=== PATIENT | male | born 1955 | race Two or more races ===

== ENCOUNTER 2022-03-13 17:14 | Inpatient (IN) | payer MEDICARE, OTHER ==
[~2022-03-13] VITALS: Ht 180.3 cm; Wt 75.7 kg
--- NOTE | 2022-03-13 17:25 | NUR ---
To ER bed 10, [id number] home, noted pale, cool and diaphoretic and c/o chest pain, bradycardic, and hypertensive sloop captain. denies chest pain upon arrival, aaox3, breathing even and non labored, connected to monitor
--- NOTE | 2022-03-13 18:16 | NUR ---
COVID SWAB DONE AND SENT TO LAB
--- NOTE | 2022-03-13 18:21 | NUR ---
MOVE SHEET SUBMITTED.
--- NOTE | 2022-03-13 18:39 | NUR ---
THOMAS [phone]
--- NOTE | 2022-03-13 18:41 | NUR ---
DR ARIAS TALKING TO THOMAS, PATIENTS DAUGHTER
[2022-03-13 18:57] LABS: CALCIUM, SERUM 8.8 mg/dL (8.5-10.1); CARBON DIOXIDE 32 mmol/L (21-32); CHLORIDE 106 mmol/L (98-107); CREATININE 1.7 mg/dL (0.6-1.3); GLUCOSE 80 mg/dL (74-106); SODIUM SERUM 141 mmol/L (136-145); UREA NITROGEN, BLOOD 18 mg/dL (7-18)
--- NOTE | 2022-03-13 19:10 | NUR ---
PATIENT AWAKE, AAOX3, BREATHING EVEN AND NON LABORED, DENIES PAIN
--- NOTE | 2022-03-13 19:31 | NUR ---
PT IS ALERT AND ORIENTED, RESTING COMFORTABLY IN BED. CONNECTED TO MONITOR. DENIES ANY PAIN AT THIS TIME. WILL CONTINUE TO MONITOR
--- NOTE | 2022-03-13 19:31 | NUR ---
RECEIVED REPORT FROM SAMM MO FOR EJ
[2022-03-13 19:46] LABS: BASOPHILS % (AUTO) 0.4 % (0.0-2.0); EOSINOPHILS % (AUTO) 0.9 % (0.0-6.0); HEMATOCRIT 45 % (39-51); HEMOGLOBIN 14.5 g/dL (13.5-17.5); LYMPHOCYTES # (AUTO) 1.3 K/uL (0.8-4.8); LYMPHOCYTES % (AUTO) 10.3 % (20.0-44.0); MEAN CORPUSCULAR HGB CONC 32 g/dl (31.0-36.0); MEAN CORPUSCULAR VOLUME 85 fL (80-96); MONOCYTES # (AUTO) 0.6 K/uL (0.1-1.30); MONOCYTES % (AUTO) 4.6 % (2.0-12.0); NEUTROPHILS # (AUTO) 10.2 K/uL (1.8-8.9); NEUTROPHILS % (AUTO) 83.8 % (43.0-81.0); PLATELET COUNT (AUTO) 217 K/uL (150-450); RED BLOOD CELL COUNT(AUTO) 5.24 MIL/uL (4.5-6.0); WHITE BLOOD COUNT (AUTO) 12.2 K/uL (4.3-11.0)
--- NOTE | 2022-03-13 21:30 | NUR ---
RECIEVED BED 312-2
--- NOTE | 2022-03-13 21:51 | NUR ---
REPORT GIVEN TO REENA MO FOR EJ
--- NOTE | 2022-03-13 22:00 | NUR ---
LABORER SHELLFISH PROCESSING NOTE RECEIVED REPORT FROM YOMI BLISS NURSE. PT COMING SOON TO ROOM 312.
--- NOTE | 2022-03-13 22:20 | NUR ---
SIEVE REPAIRERASSISTANT PORTFOLIO MANAGER NOTE RECEIVED PATIENT FROM ER. PT A/O X 4, ABLE TO MAKE NEEDS KNOWN. PT IS BEING ADMITTED FOR CHEST PAIN, AND BRADYCARDIA IN 312-2. BUT PT DENIES ANY CHEST PAIN OR DISCOMFORT AT THIS TIME. PT ABLE TO AMBULATE. SKIN ASSESSMENT DONE, PT SKIN IS INTACT. PT HAS IV ACCESS TO RIGHT AC 18 G, IV INTACT, AND FLUSHING WELL. PT ON TELE MONITOR . PT'S BP IS HIGH: 179/79, PT HAS LOW HR: 53. WILL CONTINUE TO MONITOR PT.
[2022-03-13 22:30] VITALS: BP 175/79
[2022-03-13] MEDS ORDERED: NITROGLYCERIN 0.4 MG/TAB BOTTLE SL PRN (22:30)
[2022-03-13] MEDS ORDERED: Z GUARD REMEDY 4 OZ OINT TP PRN (22:30)
[2022-03-13] MEDS ORDERED: MORPHINE SULFATE INJ 2 MG/ML DISP.SYRIN IV PRN (22:30)
[2022-03-13] MEDS ORDERED: MAG HYDROX/AL HYDROX/SIMETH 30 ML UDC PO PRN (22:30)
[2022-03-13] MEDS ORDERED: MAGNESIUM HYDROXIDE 30 ML UDC PO PRN (22:30)
[2022-03-13] MEDS ORDERED: ZOLPIDEM TARTRATE 5 MG TABLET PO PRN (22:30)
[2022-03-14] VITALS: BP 140/99
[2022-03-14 02:54] LABS: THYROID STIMULATING HORMONE 0.868 uIU/mL (0.358-3.74)
[2022-03-14 04:00] VITALS: BP 171/95
--- NOTE | 2022-03-14 07:05 | NUR ---
EARTH MOVER CLOSING NOTE PATIENT LYING IN BED ASLEEP, EASILY AROUSED. A/O X4. NO SOB NOTED. ON RA. DENIES PAIN AT THIS TIME. NOT IN ACUTE DISTRESS. ON TELE MONITOR READING SINUS BRADYCARDIA. HAS LEFT ANTECUBITAL IV ACCESS #18G. IV INTACT, PATENT AND FLUSHING WELL. ALL DUE MEDS GIVEN AND NEEDS ATTENDED. SAFETY MEASURES MAINTAINED. WILL ENDORSE PT' CARE TO ONCOMING SHIFT NURSE.
[2022-03-14 07:40] LABS: BASOPHILS # (AUTO) 0.1 K/uL (0.0-0.2); BASOPHILS % (AUTO) 0.7 % (0.0-2.0); EOSINOPHILS % (AUTO) 1.9 % (0.0-6.0); HEMATOCRIT 46 % (39-51); HEMOGLOBIN 14.9 g/dL (13.5-17.5); LYMPHOCYTES # (AUTO) 1.9 K/uL (0.8-4.8); LYMPHOCYTES % (AUTO) 23.8 % (20.0-44.0); MEAN CORPUSCULAR HGB CONC 32 g/dl (31.0-36.0); MEAN CORPUSCULAR VOLUME 85 fL (80-96); MONOCYTES # (AUTO) 0.5 K/uL (0.1-1.30); MONOCYTES % (AUTO) 5.7 % (2.0-12.0); NEUTROPHILS # (AUTO) 5.5 K/uL (1.8-8.9); NEUTROPHILS % (AUTO) 67.9 % (43.0-81.0); PLATELET COUNT (AUTO) 215 K/uL (150-450); WHITE BLOOD COUNT (AUTO) 8.1 K/uL (4.3-11.0)
[2022-03-14 08:00] VITALS: BP_SYST 156
[2022-03-14 08:27] LABS: CALCIUM, SERUM 8.7 mg/dL (8.5-10.1); CREATININE 1.4 mg/dL (0.6-1.3); MAGNESIUM 1.8 mg/dL (1.8-2.4); POTASSIUM 3.8 mmol/L (3.5-5.1)
[2022-03-14] MEDS: ASPIRIN 81 MG TAB.CHEW PO SCH (08:35)
[2022-03-14] MEDS: PANTOPRAZOLE 40 MG VIAL IV SCH (08:35)
[2022-03-14] MEDS: ENOXAPARIN SODIUM 40 MG/0.4 ML DISP.SYRIN SQ SCH (08:38)
[2022-03-14] MEDS ORDERED: HYDR-4076 PO (09:05)
[2022-03-14] MEDS ORDERED: FINA5TAB11 PO (09:05)
[2022-03-14] MEDS ORDERED: METO25TA20 PO (09:05)
[2022-03-14] MEDS ORDERED: TAMS-12 PO (09:05)
[2022-03-14] MEDS ORDERED: AMLO-212 PO (09:05)
[2022-03-14] MEDS ORDERED: PANT40TA49 PO (09:05)
[2022-03-14] MEDS ORDERED: ASPI-1420 PO (09:05)
[2022-03-14 12:00] VITALS: BP 167/100
[2022-03-14] MEDS ORDERED: CARVEDILOL 6.25 MG TABLET PO SCH (14:00)
[2022-03-14] MEDS ORDERED: hydrALAZINE HCL 50 MG TABLET PO SCH (14:00)
[2022-03-14 16:02] VITALS: BP 153/86
--- NOTE | 2022-03-14 18:56 | NUR ---
PAVING RAMMER CLOSING NOTE PATIENT RECEIVED IN BED AND AWAKE. A/O X4 AND ABLE TO VERBALIZE NEEDS WELL AMBULATE TO/FROM BATHROOM NEEDED. IV ACCESS TO RAC REMAINS INTACT AND PATENT. PATIENT TOLERATED ALL MEDICATIONS WELL. REMAINS SINUS NENITA WITH CURRENT HR OF 48. PATIENT REMAINS STABLE WITH NO OTHER ABNORMAL SYMPTOMS. BLOOD PRESSURE STILL ELEVATED ON SHIFT WITH MOST RECENT @ 153/86. ALL SAFETY MEASURES IN TACT WITH BED LOW AND LOCKED. SIDE RIAL UP X2, CALL LIGHT WITHIN REACH. WILL CONTINUE TO MONITOR.
--- NOTE | 2022-03-14 19:36 | NUR ---
INDUSTRIAL PAINTER OPENING NOTES: RECEIVED PATIENT AWAKE, BED IN LOW POSITION, CALL LIGHTS WITHIN REACH, NO COMPLAIN OF PAIN AND DISCOMFORT AT HIS TIME, ON O2 INHALATION AT 3LPM SATURATING WELL, PATIENT IS A/OX4 ABLE TO MAKE NEEDS KNOWN, IV LINE AT RAC#18SL, PATIENT KEPT CLEAN AND DRY ALL NEEDS MET WILL CONTINUE TO MONITOR.
[2022-03-14 20:00] VITALS: BP 167/88
[2022-03-14] MEDS: ACETAMINOPHEN 325 MG TABLET PO PRN (20:25)
--- NOTE | 2022-03-14 22:41 | NUR ---
RN NOTES: 2100 ANTI HYPERTENSIVE MEDICATIONS WAS OBSERVED GIVEN ONLY FOR PAST 4HRS NOTIFY PHARMACY IF NEEDS TO BE READJUST PATIENT HAS HISTORY OF BRADYCARDIA MEDICATION WAS ADJUSTED APRESOLINE 50MG Q8H PO WAS ADJUSTED TO 1200 LAST GIVEN 1634, AND CARVEDILOL 6.25MG PO Q12H TO 0400 LAST GIVEN 1634 NOTED AND CARRY OUT.
[2022-03-14] MEDS: hydrALAZINE HCL 50 MG TABLET PO SCH (23:42)
[2022-03-15] VITALS: BP 167/83
[2022-03-15 04:00] VITALS: BP 154/86
[2022-03-15] MEDS: CARVEDILOL 6.25 MG TABLET PO SCH ×2 (04:00→10:33)
--- NOTE | 2022-03-15 04:23 | NUR ---
RN NOTES: 0400 MEDICATION FOR HYPERTENSION COREG 6.25MG PO Q12H NOT GIVEN PATIENT HR IS 48 BP-154/86
[2022-03-15 06:18] LABS: BASOPHILS % (AUTO) 0.5 % (0.0-2.0); EOSINOPHILS % (AUTO) 1.8 % (0.0-6.0); HEMATOCRIT 45 % (39-51); HEMOGLOBIN 14.7 g/dL (13.5-17.5); LYMPHOCYTES # (AUTO) 2.1 K/uL (0.8-4.8); LYMPHOCYTES % (AUTO) 26.6 % (20.0-44.0); MEAN CORPUSCULAR HGB CONC 32 g/dl (31.0-36.0); MEAN CORPUSCULAR VOLUME 86 fL (80-96); MONOCYTES # (AUTO) 0.4 K/uL (0.1-1.30); MONOCYTES % (AUTO) 5.6 % (2.0-12.0); NEUTROPHILS # (AUTO) 5.1 K/uL (1.8-8.9); NEUTROPHILS % (AUTO) 65.5 % (43.0-81.0); PLATELET COUNT (AUTO) 220 K/uL (150-450); RED BLOOD CELL COUNT(AUTO) 5.31 MIL/uL (4.5-6.0); WHITE BLOOD COUNT (AUTO) 7.8 K/uL (4.3-11.0)
--- NOTE | 2022-03-15 06:34 | NUR ---
VARNISHING MACHINE OPERATOR CLOSING NOTES: PATIENT SLEEP IN BED COMFORTABLY, AROUSABLE TO VERBAL STIMULI, BED IN LOW POSITION CALL LIGHTS WITHIN REACH, NO COMPLAIN OF PAIN AND DISCOMFORT AT THIS TIME, ON ROOM AIR SATURATING WELL,ON TELE MONITOR- SB-45, PATIENT IS A/OX4 ABLE TO MAKE NEEDS KNOWN, AMBULATORY, ON NPO FOR CT ANGIO IN AM, KEPT CLEAN AND DRY ALL NEEDS MET ENDORSE TO INCOMING SHIFT.
[2022-03-15 06:47] LABS: CALCIUM, SERUM 9.1 mg/dL (8.5-10.1); CREATININE 1.6 mg/dL (0.6-1.3); POTASSIUM 3.8 mmol/L (3.5-5.1)
--- NOTE | 2022-03-15 07:40 | NUR ---
HEAD SUGAR REPROCESS OPERATOR OPENING NOTE PATIENT RECEIVED IN BED AND AWAKE. A/O X4 AND ABLE TO VERBALIZE NEEDS AND AMBULATE TO/FROM BATHROOM AND THROUGHOUT BEDROOM. REMAINS NPO AT THIS TIME FOR SCHEDULED CTA. IV ACCESS TO RAC INTACT AND PATENT WITH NO S/SX OF TRAUMA OR BLEEDING TO SITE. SAFETY MEASURES IN PLACE WITH BED IN LOWEST POSITION AND LOCKED. SIDERAIL UP AND CALL LIGHT WITHIN REACH. WILL CONTINUE TO MONITOR THROUGHOUT SHIFT.
[2022-03-15 08:00] VITALS: BP 186/86
[2022-03-15] MEDS: ENOXAPARIN SODIUM 40 MG/0.4 ML DISP.SYRIN SQ SCH (09:00)
[2022-03-15] MEDS ORDERED: IV NS 0.9% 1,000 ML IV ONE (09:30)
[2022-03-15] MEDS: hydrALAZINE HCL 50 MG TABLET PO SCH ×2 (10:33→16:52)
[2022-03-15] MEDS: PANTOPRAZOLE 40 MG VIAL IV SCH (10:33)
[2022-03-15] MEDS: ASPIRIN 81 MG TAB.CHEW PO SCH (10:34)
[2022-03-15 16:00] VITALS: BP 155/94
--- NOTE | 2022-03-15 19:03 | NUR ---
AUTOMOTIVE PRODUCT SPECIALIST CLOSING NOTE PATIENT REMAINED A/O X4 AND ABLE TO VERBALIZE NEEDS WITH NO EJ. SCHEDULED CTA RESCHEDULED FOR 03/16. DIET UPGRADED BACK TO CARDIAC DIET UNTIL MIDNIGHT. PATIENT MADE AWARE OF CHANGE. IV ACCESS TO RAC REMAINED INTACT AND PATENT WITH NS RUNNING @ 100ML/HR. TOLERATING WELL. NO S/SX OF TRAUMA OR BLEEDING TO SITE. CONTINUES TO BE SINUS NENITA. SAFETY MEASURES REMAIN IN PLACE WITH BED IN LOWEST POSITION AND LOCKED. SIDERAIL UP AND CALL LIGHT WITHIN REACH. WILL CONTINUE TO MONITOR THROUGHOUT SHIFT.
--- NOTE | 2022-03-15 19:20 | NUR ---
LANDMEN OPENING NOTE RECEIVED PATIENT IN BED AND AWAKE. A/O X4, ABLE TO VERBALIZE NEEDS, AND ABLE TO AMBULATE TO BATHROOM. IV ACCESS TO RIGHT AC INTACT AND PATENT WITH NO S/SX OF TRAUMA OR BLEEDING TO SITE. SAFETY MEASURES IN PLACE: BED IN LOWEST POSITION AND LOCKED. SIDE RAILS UP X 2 AND CALL LIGHT WITHIN REACH. WILL CONTINUE TO MONITOR PT THROUGHOUT SHIFT.
[2022-03-15 20:00] VITALS: BP 183/100
[2022-03-15] MEDS: hydrALAZINE HCL IV 20 MG VIAL IV PRN (20:30)
--- NOTE | 2022-03-15 20:30 | NUR ---
MANAGEMENT SME NOTE PT'S BP IS HIGH: 183/100. HR: 123. BP MED ADMINISTERED.
--- NOTE | 2022-03-15 22:00 | NUR ---
SUPERVISOR PAYROLL NOTE PT WAS GIVEN BP MED. PT'S BP NOW: 176/85, HR: 60. WILL CONTINUE TO MONITOR PT.
[2022-03-16] VITALS (7 sets, daily range): BP systolic 117–178; BP diastolic 78–102
[2022-03-16] MEDS: hydrALAZINE HCL 50 MG TABLET PO SCH ×3 (00:21→16:09)
[2022-03-16] MEDS: ACETAMINOPHEN 325 MG TABLET PO PRN ×2 (00:26→16:14)
[2022-03-16] MEDS: CARVEDILOL 6.25 MG TABLET PO SCH ×2 (04:00→16:08)
[2022-03-16] MEDS: hydrALAZINE HCL IV 20 MG VIAL IV PRN (04:41)
--- NOTE | 2022-03-16 04:45 | NUR ---
MARKETING PRODUCER NOTE PT HAS HIGH BP, BP: 177/97, WITH HR: 53-62. HYDRALAZINE ADMINISTERED TO PT. COREG NOT GIVEN TO PT D/T LOW HR, AND PT NPO SINCE MIDNIGHT.
[2022-03-16] MEDS: ONDANSETRON HCL/PF 4 MG/2 ML VIAL IVP PRN ×2 (05:02→11:21)
--- NOTE | 2022-03-16 05:19 | NUR ---
CHAPERONE NOTE PT STATES THAT HE FEELS DIZZY, AND NAUSEOUS. PT HAD AN EPISODE OF EMESIS. ZOFRAN GIVEN TO PT. MD NOTIFIED. MD AT BED SIDE. NEW ORDER GIVEN FOR TROPONIN, MAG,AND PHOS. ORDER CARRIED OUT.
[2022-03-16 05:52] LABS: BASOPHILS # (AUTO) 0.1 K/uL (0.0-0.2); BASOPHILS % (AUTO) 0.8 % (0.0-2.0); EOSINOPHILS % (AUTO) 1.5 % (0.0-6.0); HEMATOCRIT 49 % (39-51); HEMOGLOBIN 15.9 g/dL (13.5-17.5); LYMPHOCYTES # (AUTO) 2.5 K/uL (0.8-4.8); LYMPHOCYTES % (AUTO) 27.4 % (20.0-44.0); MEAN CORPUSCULAR HGB CONC 32 g/dl (31.0-36.0); MEAN CORPUSCULAR VOLUME 86 fL (80-96); MONOCYTES # (AUTO) 0.6 K/uL (0.1-1.30); MONOCYTES % (AUTO) 6.5 % (2.0-12.0); NEUTROPHILS # (AUTO) 5.9 K/uL (1.8-8.9); NEUTROPHILS % (AUTO) 63.8 % (43.0-81.0); PLATELET COUNT (AUTO) 221 K/uL (150-450); RED BLOOD CELL COUNT(AUTO) 5.73 MIL/uL (4.5-6.0); WHITE BLOOD COUNT (AUTO) 9.2 K/uL (4.3-11.0)
--- NOTE | 2022-03-16 05:53 | NUR ---
RN NOTES HYDRALAZINE 10MG IV WAS GIVEN BY CHEPE HIGGINS FOR BP 177/97.. AFTER AN HOUR PATIENT COMPLAINED OF FEELING DIZZY, PUT NASAL CANNULA AND GAVE O2 @ 2L SAT 98 %. FARRAH POLK-GUSSET MAKER MADE AWARE.- NO ORDER WAS GIVEN ...ICU CHARGE NURSE CAME UP AND ASSESSED THE PATIENT, ORDER SOME LAB WORKS , AFTER 30MINS, PT STATED HE'S FEELING MCH BETTER,,WILL CONTINUE TO MONITOR
[2022-03-16] MEDS: IV NS 0.9% 1,000 ML IV PRN ×2 (06:13→18:49)
[2022-03-16 07:17] LABS: CALCIUM, SERUM 9.4 mg/dL (8.5-10.1); CREATININE 1.4 mg/dL (0.6-1.3); MAGNESIUM 1.9 mg/dL (1.8-2.4); PHOSPHORUS 3.4 mg/dL (2.5-4.9); POTASSIUM 3.8 mmol/L (3.5-5.1)
--- NOTE | 2022-03-16 07:30 | NUR ---
REHABILITATION WORKER CLOSING NOTE LEFT PATIENT IN BED AWAKE. BED IN LOW POSITION CALL LIGHTS WITHIN REACH, NO COMPLAIN OF PAIN AT THIS TIME, ON ROOM AIR SATURATING WELL,ON TELE MONITOR- SB, PATIENT IS A/OX4 ABLE TO MAKE NEEDS KNOWN, AMBULATORY, PT NPO FOR CT ANGIO IN AM. PT KEPT CLEAN, AND DRY. ALL NEEDS MET. ENDORSED TO INCOMING SHIFT NURSE FOR EJ.
--- NOTE | 2022-03-16 07:56 | NUR ---
RN OPENING NOTE PATIENT AWAKE IN BED RESTING. A/O X4. NO S/S OF PAIN NOTED AT THIS TIME. ON ROOM AIR, NO DISTRESS OR SHORTNESS OF BREATH NOTED. IV ACCESS RAC #18G INTACT, PATENT AND FLUSHING WELL. PATIENT WITH EXTERNAL EMAIL MARKETING INTERN WITH CURRENT READING OF SB AND HR OF 50'S. FALL AND SAFETY MEASURES IN PLACE, BED ALARM ON, BED IN LOW AND LOCK POSITION, CALL LIGHT AND TABLE WITHIN EASY REACH, SIDE RAILS UP X2. WILL CONTINUE TO MONITOR.
[2022-03-16] MEDS: PANTOPRAZOLE 40 MG TABLET.DR PO SCH (08:22)
[2022-03-16] MEDS: ASPIRIN 81 MG TAB.CHEW PO SCH (08:24)
[2022-03-16] MEDS: ENOXAPARIN SODIUM 40 MG/0.4 ML DISP.SYRIN SQ SCH (09:00)
[2022-03-16] MEDS ORDERED: HYDROCODONE/APAP 10/325MG TABLET PO PRN (10:30)
--- NOTE | 2022-03-16 10:40 | NUR ---
RN NOTE PATIENT COMPLAINED OF HEADACHE, DOCTOR WAS INFORMED, DOCTOR ORDERED NORCO-10 PO Q6HRS PRN, ORDER WAS PLACED, MEDICATION GIVEN, WILL CONTINUE TO MONITOR.
[2022-03-16] MEDS ORDERED: IOHEXOL-350 100 ML VIAL IV ONE (11:26)
[2022-03-16] MEDS ORDERED: IV NS 0.9% 250 ML IV ONE (11:26)
[2022-03-16] MEDS ORDERED: CT SWABBABLE VALVE TRANS SET 1 EA INFUS.SET MC ONE (11:26)
[2022-03-16] MEDS ORDERED: NITROGLYCERIN 0.4 MG/TAB BOTTLE ONE (11:26)
[2022-03-16] MEDS ORDERED: METOPROLOL TARTRATE INJ 5 MG/5 ML AMPUL ONE (11:26)
[2022-03-16] MEDS ORDERED: NITROGLYCERIN 0.4 MG/TAB BOTTLE SL PRN (11:30)
[2022-03-16] MEDS ORDERED: METOPROLOL TARTRATE INJ 5 MG/5 ML AMPUL IVP PRN (11:30)
--- NOTE | 2022-03-16 11:46 | NUR ---
AGRICULTURAL ENGINEERING TECHNICIAN PT BROUGHT INTO CT1 FOR CTCA. PT PLACED ON TABLE, PT VERY NAUSEATED, STARTED VOMITING. CALLED PHARMACY AND ADMINISTERED PRN ZOFRAN PER EMAR ORDER. PT NOTED TO BE DIAPHORETIC. VITALS CHECKED. WILL CONTINUE TO MONITOR AND ASSESS. PT WISHES TO CONTINUE WITH EXAM. EDUCATED HIM ON THE PROCESS. WILL CONTINUE TO MONITOR. CTCA COMPLETED.
--- NOTE | 2022-03-16 12:00 | NUR ---
RN NOTE PATIENT HAD A CTCA DONE TODAY. PATIENT HAS BEING HAVING HIGH BLOOD PRESSURES, VOMITING X2, NAUSEA AND DIAPHORETIC. ZOFRAN WAS GIVEN, BLOOD PRESSURE MEDICATION WAS GIVEN, BP WENT DOWN FROM 180/100 P:70 TO 147/84 p: 68. OXYGEN WAS PROVIDED SAT. 99%. PATIENT IS IN ROOM RESTING COMFORTABLY. DOCTOR WAS INFORMED, CHARGE NURSE AWARE. WILL CONTINUE TO MONITOR.
[2022-03-16 16:13] LABS: ALBUMIN 3.9 g/dL (3.4-5.0); BILIRUBIN,DIRECT 0.2 mg/dL (0.0-0.2); BILIRUBIN,TOTAL 0.7 mg/dL (0.2-1.0); TOTAL PROTEIN, SERUM 7.4 g/dL (6.4-8.2)
--- NOTE | 2022-03-16 16:17 | NUR ---
RN NOTE PATIENT COMPLAINED OF HEADACHE TYLENOL WAS GIVEN, WILL CONTINUE TO MONITOR.
--- NOTE | 2022-03-16 19:26 | NUR ---
RN CLOSING NOTE PATIENT AWAKE IN BED RESTING. A/O X4. NO S/S OF PAIN NOTED AT THIS TIME, PAIN MEDICATION GIVEN DURING THE SHIF. ON ROOM AIR, NO DISTRESS OR SHORTNESS OF BREATH NOTED. IV ACCESS RAC #18G INTACT, PATENT AND FLUSHING WELL. PATIENT WITH EXTERNAL FIRE FIGHTING EQUIPMENT SPECIALIST WITH CURRENT READING OF SB- SR AND HR OF 50'S- 60'S, NO CARDIAC DISTRESS NOTED. SCHEDULE MEDICATIONS ADMINISTERED. HIGH BLOOD PRESSURE DURING THE SHIFT, PLEASE MONITOR BP. FALL AND SAFETY MEASURES IN PLACE, BED ALARM ON, BED IN LOW AND LOCK POSITION, CALL LIGHT AND TABLE WITHIN EASY REACH, SIDE RAILS UP X2. WILL ENDORSE TO CONSERVATION OF RESOURCES COMMISSIONER.
--- NOTE | 2022-03-16 19:53 | NUR ---
RN OPENING NOTES RECEIVED PT IN BED, SITTING UPRIGHT, WITH DAUGHTERS AT BEDSIDE. AOx4, ABLE TO MAKE NEEDS KNOWN. ON RA AND TOLERATING WELL. NO SOB NOTED. NO S/SX OF RESPIRATORY DISTRESS NOTED. IV ACCESS IN RAC #20G RUNNING NS @ 100 ML/HR. SAFETY PRECAUTIONS IN PLACE: BED IN LOWEST, LOCKED POSITION, SIDERAILS UPx2, AND BRAKES ON. TABLE AND CALL LIGHT WITHIN REACH. ALL NEEDS MET AT THIS TIME.
[2022-03-17] VITALS: BP 152/74
[2022-03-17] MEDS: hydrALAZINE HCL 50 MG TABLET PO SCH ×4 (00:58→23:26)
[2022-03-17 04:00] VITALS: BP 149/75
[2022-03-17] MEDS: CARVEDILOL 6.25 MG TABLET PO SCH ×2 (04:00→16:00)
[2022-03-17 06:07] LABS: CALCIUM, SERUM 8.8 mg/dL (8.5-10.1); CREATININE 1.6 mg/dL (0.6-1.3)
--- NOTE | 2022-03-17 06:45 | NUR ---
RN CLOSING NOTES PT IN BED, ASLEEP, AWAKENS TO VERBAL STIMULI. AOx4, ABLE TO MAKE NEEDS KNOWN. ON RA AND TOLERATING WELL. NO SOB NOTED. NO S/SX OF RESPIRATORY DISTRESS NOTED. IV ACCESS IN DOUGLAS #18G RUNNING NS @ 100 ML/HR. ALL ORDERS CARRIED OUT. ALL NEED MET. PT KEPT CLEAN AND DRY. SAFETY PRECAUTIONS IN PLACE: BED IN LOWEST, LOCKED POSITION, SIDERAILS UPx2, AND BRAKES ON. TABLE AND CALL LIGHT WITHIN REACH. WILL ENDORSE TO ONCOMING SHIFT FOR EJ.
--- NOTE | 2022-03-17 08:16 | NUR ---
RN OPENING NOTE PATIENT AWAKE IN BED RESTING. A/O X4. NO S/S OF PAIN NOTED AT THIS TIME. ON ROOM AIR, NO DISTRESS OR SHORTNESS OF BREATH NOTED. IV ACCESS DOUGLAS #18G INTACT, PATENT AND FLUSHING WELL. PATIENT WITH EXTERNAL ASSISTANT ACCOUNTING MANAGER WITH CURRENT READING OF SB AND HR OF 50'S. FALL AND SAFETY MEASURES IN PLACE, BED ALARM ON, BED IN LOW AND LOCK POSITION, CALL LIGHT AND TABLE WITHIN EASY REACH, SIDE RAILS UP X2. WILL CONTINUE TO MONITOR.
--- NOTE | 2022-03-17 08:30 | NUR ---
RN NOTE CARE TAKEN OVER BY CHEPE WARD.
[2022-03-17 08:46] VITALS: BP 141/77
[2022-03-17] MEDS: ASPIRIN 81 MG TAB.CHEW PO SCH (09:15)
[2022-03-17] MEDS: PANTOPRAZOLE 40 MG TABLET.DR PO SCH (09:15)
[2022-03-17] MEDS: ENOXAPARIN SODIUM 40 MG/0.4 ML DISP.SYRIN SQ SCH (09:18)
[2022-03-17 16:00] VITALS: BP 143/67
--- NOTE | 2022-03-17 18:18 | NUR ---
RN NOTE Spoke with Dr. Sanz, patient cleared for procedure from nephro perspective.
[2022-03-17] MEDS: IV NS 0.9% 1,000 ML IV PRN (18:46)
--- NOTE | 2022-03-17 19:08 | NUR ---
NATURAL GAS ENGINEER CLOSING NOTES PATIENT AWAKE IN BED. A/Ox4. ON ROOM AIR, NO S/S OF RESPIRATORY DISTRESS. ON TELE MONITORING SHOWING SINUS RHYTHM/NENITA HR 60. IV ACCESS DOUGLAS #18 WITH NS RUNNING @100 ML/HR. INTACT AND PATENT. AMBULATORY, HAS BATHROOM PRIVILEGE. SKIN INTACT. ALL PRESCRIBED MEDICATION ADMINISTERED. SAFETY MEASURES MAINTAINED: BED LOCKED AND IN LOWEST POSITION, HOB ELEVATED, SIDE RAILS UP x2, CALL LIGHT WITHIN REACH. WILL ENDORSE TO NEXT SHIFT ANY EJ.
--- NOTE | 2022-03-17 19:30 | NUR ---
JEWELRY DESIGNER NOTES RECEIVED LAYING COMFORTABLY ON BED,A/O X4,BREATHING REGULAR,NOT IN ANY FORM OF DISTRESS,[id number] CHEST PAIN,INSTRUCTED NPO POST MIDNIGHT FOR LEFT HEART CATH IN THE MORNING BY DR RODRIGUEZ.CONSENT ON CHART.PRESENT IVF NS AT 100ML/HR ERATE INFUSING WELL ON RIGHT UPPER ARM SALINE LOCK VIA IV PUMP.CALL LIGHT IN REACH,NEEDS ANTICIPATED.
[2022-03-17 20:00] VITALS: BP 159/68
--- NOTE | 2022-03-17 21:55 | NUR ---
CARDIOVASCULAR TECHNOLOGIST NOTES SB-57 ON TELE MONITOR,NO CHEST PAIN
--- NOTE | 2022-03-17 23:32 | NUR ---
AUTO RESEARCH ENGINEER NOTES BP 171/79,PULSE-49,DUE HYDRALAZINE 50MG PO GIVEN WITH SIPS OF WATER.
[2022-03-18] VITALS (8 sets, daily range): BP systolic 131–179; BP diastolic 66–95
[2022-03-18] MEDS: CARVEDILOL 6.25 MG TABLET PO SCH ×2 (04:00→16:00)
--- NOTE | 2022-03-18 04:00 | NUR ---
ARMATURE WINDER REPAIR HELPER NOTES PULSE 53,COREG HELD ORDERED FOR PULSE BELOW 60.
--- NOTE | 2022-03-18 06:20 | NUR ---
DRIVER SUPERVISOR NOTES FAIRLY RESTED AT NIGHT,KEPT NPO EXCEPT MEDS,GOING FOR LEFT HEART CATH AT [address] RODRIGUEZ.CONSENT ON CHART.IVF IN PROGRESS,DUE MEDS ADMINISTERED SCHEDULED.CALL LIGHT IN REACH,NEEDS ATTENDED.
[2022-03-18] MEDS: IV NS 0.9% 1,000 ML IV PRN ×2 (06:34→23:41)
[2022-03-18 07:13] LABS: CALCIUM, SERUM 8.8 mg/dL (8.5-10.1); CREATININE 1.6 mg/dL (0.6-1.3); MAGNESIUM 1.8 mg/dL (1.8-2.4); PHOSPHORUS 2.9 mg/dL (2.5-4.9); POTASSIUM 4.1 mmol/L (3.5-5.1)
[2022-03-18] MEDS: PANTOPRAZOLE 40 MG TABLET.DR PO SCH (07:30)
--- NOTE | 2022-03-18 07:30 | NUR ---
RN Opening Note PT AOx4, able to express his own concerns. Pt states he is feeling fine, aware and agrees with pending procedure later on today. Will keep patient NPO until further notice. IV line's with no signs of infiltrations, no pain reported. Will administer medications as prescribed, provide care as needed and monitor throughout shift. All safety precautions taken, call light and table within reach, bed at lowest position.
[2022-03-18 07:36] LABS: BASOPHILS % (AUTO) 0.6 % (0.0-2.0); EOSINOPHILS % (AUTO) 1.4 % (0.0-6.0); HEMATOCRIT 44 % (39-51); HEMOGLOBIN 14.2 g/dL (13.5-17.5); LYMPHOCYTES # (AUTO) 2.2 K/uL (0.8-4.8); LYMPHOCYTES % (AUTO) 27.9 % (20.0-44.0); MEAN CORPUSCULAR HGB CONC 32 g/dl (31.0-36.0); MEAN CORPUSCULAR VOLUME 86 fL (80-96); MONOCYTES # (AUTO) 0.5 K/uL (0.1-1.30); MONOCYTES % (AUTO) 6.6 % (2.0-12.0); NEUTROPHILS % (AUTO) 63.5 % (43.0-81.0); PLATELET COUNT (AUTO) 206 K/uL (150-450); RED BLOOD CELL COUNT(AUTO) 5.13 MIL/uL (4.5-6.0); WHITE BLOOD COUNT (AUTO) 7.9 K/uL (4.3-11.0)
[2022-03-18] MEDS: hydrALAZINE HCL 50 MG TABLET PO SCH ×2 (08:00→15:15)
[2022-03-18] MEDS: ASPIRIN 81 MG TAB.CHEW PO SCH (09:00)
[2022-03-18] MEDS: ENOXAPARIN SODIUM 40 MG/0.4 ML DISP.SYRIN SQ SCH (09:00)
[2022-03-18] MEDS ORDERED: LIDOCAINE HCL/MPF 1% 30 ML VIAL IJ ONE (09:50)
[2022-03-18] MEDS ORDERED: NITROGLYCERIN IN 5 % DEXTROSE 250 ML IV ONE (09:50)
[2022-03-18] MEDS ORDERED: IODIXANOL 150 ML IV ONE (09:50)
[2022-03-18] MEDS ORDERED: IV SET PRIMARY PUMP SET 1 EA INFUS.SET MC ONE (09:56)
[2022-03-18] MEDS ORDERED: IV NS 0.9% 1,000 ML ONE (09:56)
--- NOTE | 2022-03-18 10:21 | NUR ---
Transport to cathlab PT transferred out of unit safely to laboratory geneticist. Transport team provided services, [place] All safety precautions taken.
[2022-03-18] MEDS ORDERED: FENTANYL PF 100MCG/2ML AMPUL ONE (10:46)
[2022-03-18] MEDS ORDERED: MIDAZOLAM HCL 2 MG/2ML VIAL ONE (10:46)
[2022-03-18] MEDS ORDERED: hydrALAZINE HCL IV 20 MG VIAL ONE (11:14)
[2022-03-18] MEDS: ONDANSETRON HCL/PF 4 MG/2 ML VIAL IVP PRN (12:10)
[2022-03-18] MEDS: NIFEdipine XL (30MG) 30 MG TAB PO SCH ×2 (13:10→17:41)
[2022-03-18] MEDS: ACETAMINOPHEN 325 MG TABLET PO PRN ×2 (15:14→21:11)
--- NOTE | 2022-03-18 16:30 | NUR ---
TR Band-Nursing Note PT AOx4, able to express his own concerns. TR deflated as ordered, removing 3ml of air every 15 minutes. Monitored patient closely, no signs of bleed, Band completely deflated.
--- NOTE | 2022-03-18 18:39 | NUR ---
RN Closing Report. PT AOx4 able to express his own concerns. Patient has been resting, no signs of distress other than headache, states he is not used to having blood pressures in the 130's. Educated patient on importance of following up with PCP, monitoring blood pressures and sharing with provider, pt verbalizes understanding. Patient remained safe throughout shift. All safety precautions taken, call light and table within reach, bed at lowest position. IV fluids running as prescribed, no signs of infiltration, no pain at site reported. No signs of bleeding.
--- NOTE | 2022-03-18 20:06 | NUR ---
RN OPENING NOTES RECEIVED PT IN BED, AWAKE, WATCHING TV. AOx4, ABLE TO MAKE NEEDS KNOWN. ON RA AND TOLERATING WELL. NO SOB NOTED. NO S/SX OF RESPIRATORY DISTRESS NOTED. TELE MONITOR DETECTS SINUS RHYTHM WITH RATE OF 50-60. IV ACCESS IN MONSERRAT #18G RUNNING NS @ 100 ML/HR. SAFETY PRECAUTIONS IN PLACE: BED IN LOWEST, LOCKED POSITION, SIDERAILS UPx2, AND BRAKES ON. TABLE AND CALL LIGHT WITHIN REACH. ALL NEEDS MET AT THIS TIME.
--- NOTE | 2022-03-18 21:11 | NUR ---
RN NOTES ADMINISTERED TYLENOL FOR HEADACHE PER PT REQUEST.
[2022-03-19] VITALS: BP 138/86
[2022-03-19] MEDS: hydrALAZINE HCL 50 MG TABLET PO SCH ×2 (00:48→08:26)
[2022-03-19 04:00] VITALS: BP 138/73
[2022-03-19] MEDS: CARVEDILOL 6.25 MG TABLET PO SCH (04:00)
[2022-03-19] MEDS: ACETAMINOPHEN 325 MG TABLET PO PRN (04:29)
--- NOTE | 2022-03-19 04:29 | NUR ---
RN NOTES ADMINISTERED TYLENOL FOR HEADACHE PER PT REQUEST.
--- NOTE | 2022-03-19 06:40 | NUR ---
RN CLOSING NOTES PT IN BED, ASLEEP, AWAKENS TO VERBAL STIMULI. AOx4, ABLE TO MAKE NEEDS KNOWN. ON RA AND TOLERATING WELL. NO SOB NOTED. NO S/SX OF RESPIRATORY DISTRESS NOTED. TELE MONITOR DETECTS SINUS RHYTHM WITH RATE OF 50-60. IV ACCESS IN MONSERRAT AND DOUGLAS #18G RUNNING NS @ 100 ML/HR. RIGHT WRIST DRESSING CLEAN, DRY, AND INTACT. NO BLEEDING OR BRUISING. ALL ORDERS CARRIED OUT. ALL NEEDS MET. PT KEPT CLEAN AND DRY. SAFETY PRECAUTIONS IN PLACE: BED IN LOWEST, LOCKED POSITION, SIDERAILS UPx2, AND BRAKES ON. TABLE AND CALL LIGHT WITHIN REACH. WILL ENDORSE TO ONCOMING SHIFT FOR EJ.
--- NOTE | 2022-03-19 07:30 | NUR ---
RN Receiving Report. PT AOx4, able to express his own concerns. Patient states he is feeling better with blood pressure under control and states he wants to go home. Patient shows no signs of distress or discomfort. Discussed plan of care and plan of care with patient and he verbalized agreement. IV fluids running as prescribed, with no signs of swelling or infiltration. All safety precautions taken with patient, call light and table within reach, bed at lowest position. Will continue to monitor throughout shift and provide care as needed.
[2022-03-19 08:00] VITALS: BP 147/84
[2022-03-19] MEDS: ASPIRIN 81 MG TAB.CHEW PO SCH (08:25)
[2022-03-19] MEDS: PANTOPRAZOLE 40 MG TABLET.DR PO SCH (08:25)
[2022-03-19] MEDS: NIFEdipine XL (30MG) 30 MG TAB PO SCH (08:26)
[2022-03-19] MEDS: ENOXAPARIN SODIUM 40 MG/0.4 ML DISP.SYRIN SQ SCH (08:28)
[2022-03-19 11:37] VITALS: BP 148/70
[2022-03-19] MEDS ORDERED: CARV6.252 PO (13:31)
[2022-03-19] MEDS ORDERED: HYDR-4077 PO (13:31)
[2022-03-19] MEDS ORDERED: NITR0.4T48 SL (13:31)
[2022-03-19] MEDS ORDERED: SIMV-49 PO (13:31)
[2022-03-19] MEDS ORDERED: NIFE-35 PO (13:31)
--- NOTE | 2022-03-19 14:52 | NUR ---
tier lift truck operator Note PT AOx4 discharge order verified, pt agrees and is excited to go home, shower and see his grandson. PT is stable for discharge, educated on importance of monitoring blood pressures and vital signs. IV catheters removed, catheter patent and intact, dressing applied. Son is here to waste picker pt, discussed discharge instructions with pt and son, verbalized understanding. Right wrist cath access site with no signs of bleed. Patient discharged to main entrance safely, all safety precautions taken.
== END 2022-03-19 15:00 | disposition home health service (06) | DRG 286 ==
LOC: ER 17:37 → TELE 22:03
PROVIDERS: ADMIT Nurse Practitioner Acute Care; ATTEND Student in an Organized Health Care Education/Training Program
PROC: 4A023N7 Measurement of Cardiac Sampling and Pressure, Left Heart, Percutaneous Approach (ICD-10-PCS; principal; 2022-03-18)
PROC: B211YZZ Fluoroscopy of Multiple Coronary Arteries using Other Contrast (ICD-10-PCS; 2022-03-18)
DX: I25.118 Atherosclerotic heart disease of native coronary artery with other forms of angina pectoris (principal); N17.0 Acute kidney failure with tubular necrosis; Z87.442 Personal history of urinary calculi; I12.9 Hypertensive chronic kidney disease with stage 1 through stage 4 chronic kidney disease, or unspecified chronic kidney disease; N18.9 Chronic kidney disease, unspecified; I49.3 Ventricular premature depolarization; Z91.14 Patient's other noncompliance with medication regimen; Z91.199 Patient's noncompliance with other medical treatment and regimen due to unspecified reason; D72.829 Elevated white blood cell count, unspecified; E78.5 Hyperlipidemia, unspecified; F17.200 Nicotine dependence, unspecified, uncomplicated; Z98.890 Other specified postprocedural states
CPT/HCPCS: 36415; 70450-TC; 71045-TC; 75574; 76770-TC; 80048-TC; 80061-TC; 80076-TC; 82962-TC; 83735-TC; 84100-TC; 84439-TC; 84443-TC; 84484-TC; 85025-TC; 85610-TC; 85730-TC; 87081-TC; 93307-TC; C9113; C9803; G0378; G0500; J0360; J1644; J1650; J2250; J2405; J3010; J3490; J7030; J7050; Q9967